=== PATIENT | female | born 1990 | race Caucasian/White ===

== ENCOUNTER 2024-08-14 16:06 | Emergency (ER) | payer MEDICAID, SELFPAY ==
[2024-08-14 16:14] VITALS: BP 118/77; PULSE 66; RESP 16; TEMP 36.8; O2SAT 97; BMI 35.4
--- NOTE | 2024-08-14 16:17 | ED.GENADULT ---
HPI - General Adult General Chief complaint: Nausea/Vomiting/Diarrhea Stated complaint: <10wks Preg; Vomiting, Dehydration Time Seen by Provider: 08/14/24 16:16 History of Present Illness HPI narrative: 34-year-old last menstrual period July 08 positive home test last night began feeling mild headache tinnitus and vertigo that has gotten worse over the course of the evening and today. She finds that motion makes it worse. She has not having any fevers. She did not have significant related nausea or vomiting with her 1st 2 pregnancies. No diarrhea or abdominal pain. No head trauma no recent fevers or chills Related Data Previous Rx's Medication Instructions Recorded meclizine 25 mg tablet 25 mg PO QID #20 tabs 08/14/24 ondansetron 4 mg disintegrating 4 mg PO Q8H PRN nausea and 08/14/24 tablet vomiting #20 tabs Review of Systems Review of Systems Narrative: Pertinent positive and negative findings as per HPI Exam Initial Vital Signs Initial Vital Signs: Vital Signs Temperature 98.2 F 08/14/24 16:14 Pulse Rate 66 08/14/24 16:14 Respiratory Rate 16 08/14/24 16:14 Blood Pressure 118/77 08/14/24 16:14 Pulse Oximetry 97 08/14/24 16:14 Oxygen Delivery Method Room Air 08/14/24 16:14 General: Looks like she does not feel well, holding her head very still Able to give a complete and coherent history. Well-nourished well-developed HEENT: Moist mucous membranes, normal sclera with reactive pupils, positive nystagmus with her head turned to the left. Respiratory: Lungs are clear to auscultation, no wheezing no rales no rhonchi. Full and symmetrical air movement Cardiac: Regular rate and rhythm no murmurs no bruits Abdomen: Soft, nontender, good bowel tones, no flank pain Neurologic: Grossly neurologically intact with no obvious asymmetries or abnormalities Extremities: No trauma, no edema Psych: Cooperative, appropriate insight and affect Course Orders Ordered: ED Orders 08/14/24 16:26 UA Complete [Urinalysis and Microscopic] Stat 08/14/24 16:36 Beta HCG, Quant [HCG Quantitative /Beta subunit] Stat Complete Blood Count AUTO DIFF Stat Comprehensive Metabolic Panel Stat 08/14/24 16:54 US OB <= 14 weeks fetus Stat Discontinued Medications Sodium Chloride (Normal Saline 0.9%) 1,000 mls @ 1,000 mls/hr IV BOLUS ONE Stop: 08/14/24 17:25 Last Admin: 08/14/24 16:43 Dose: 1,000 mls/hr Documented By: MARTINA Sodium Chloride (Normal Saline 0.9%) 1,000 mls @ 1,000 mls/hr IV BOLUS ONE Stop: 08/14/24 17:26 Ondansetron HCl (Ondansetron 4 Mg/2 Ml Inj) 4 mg IV NOW ONE Stop: 08/14/24 16:27 Last Admin: 08/14/24 16:43 Dose: 4 mg Documented By: MARTINA Vital Signs Vital signs: Vital Signs - 8 hr 08/14/24 16:14 Temperature 98.2 F Pulse Rate 66 Respiratory Rate 16 Blood Pressure 118/77 Pulse Oximetry 97 Oxygen Delivery Method Room Air Medical Decision Making Lab Data 08/14/24 16:36 08/14/24 16:36 Labs: Lab Results 08/14/24 Range/Units 16:36 WBC 10.0 (4.5-11.0) X10^3/uL RBC 4.57 (4.0-5.2) X10^6/uL Hgb 12.8 (12.0-16.0) g/dL Hct 37.8 (36-46) % MCV 82.7 (80-100) fL MCH 28.0 (26-34) PG MCHC 33.8 (30-36) % RDW 14.2 (11.6-14.8) % Plt Count 274 (150-400) X10^3/uL Neut % (Auto) 78.3 H (50-75) % Lymph % (Auto) 14.7 L (25-40) % [place] % (Auto) 5.9 (3-14) % Eos % (Auto) 0.6 L (2-4) % Baso % (Auto) 0.5 (0-2) % Neut # (Auto) 7800 H (6906-2817) /uL Lymph # (Auto) 1500 (7747-5443) /uL [place] # (Auto) 600 (0-900) /uL Eos # (Auto) 100 (0-450) /uL Baso # (Auto) 100 (0-100) /uL Sodium 133 L (137-145) mmol/L Potassium 3.5 (3.4-5.1) mmol/L Chloride 106 (98-107) mmol/L Carbon Dioxide 22 (22-32) mmol/L BUN 8 (7-17) mg/dL Creatinine 0.64 (0.52-1.04) mg/dL Estimated GFR > 60 (>60) mL/min BUN/Creatinine Ratio 12.5 (6-22) Glucose 103 H (70-100) mg/dL Calcium 8.8 (8.4-10.2) mg/dL Total Bilirubin 0.6 (0.2-1.3) mg/dL AST 23 (14-36) IU/L ALT 18 (<35) IU/L Alkaline Phosphatase 60 (38-126) U/L Total Protein 7.5 (6.3-8.2) g/dL Albumin 3.7 (3.5-5.0) g/dL Globulin 3.8 (1.7-4.1) g/dL Albumin/Globulin Ratio 1.0 (1.0-2.8) HCG, Quant 95717 mIU/mL MDM Narrative Medical decision making narrative: CC: Acute vertigo, incidental Complicating co-morbidities: , unknown dates Data collected from: patient Differential considered: Benign positional vertigo, ear infection, related nausea Exam documented above, pertinent findings include: Patient has fairly clear symptoms of benign positional vertigo with nystagmus noticeable when head is turned to the left. Belly is soft remainder of exam is benign Lab Test results independently reviewed as above. Pertinent findings: CBC is unremarkable Metabolic panel is reassuring Quantitative hCG is 35,741 Imaging studies independently reviewed: US confirms 7wk IUP Treatments: fluids, zofran , PO meclizine eply maneuver. As the most significant nystagmus is noticed with leftward gaze, we did an Chuck maneuver to the left side. Slight improvement. Still nauseated to have dry heaves when she is set up with the end of the procedure Discussion: 34-year-old woman with a 9 positional vertigo and incidentally found healthy 7 week intrauterine with the appropriate hCG levels. I suspect that the significant nausea does due to be PB rather than early related complications. She will be given prescription for both Zofran and meclizine. Meclizine is a be category. Reassurance is given, questions are answered there was no indication for hospitalization or additional imaging and she is safe for discharge Discharge Plan Departure Patient Disposition: Home Clinical Impression: Early stage of BPV (benign positional vertigo) Qualifiers: Laterality: left Qualified Code(s): H81.12 - Benign paroxysmal vertigo, left ear Instructions: DI for Benign Paroxysmal Positional Vertigo Activity Restrictions/Additional Instructions: Congratulations on your ! You are currently at 7 weeks, hCG levels are quite healthy and the fetus is appropriately growing in your uterus. This gives you a due date of Thursday April 03, 2025 The reason for you are acute vertigo is benign positional vertigo. It may be that your is complicating this but typically most people do not begin to notice too much nausea until beyond 7 weeks. I encourage you to do a [employer] search on benign positional vertigo and a [employer] search on treatments and Chuck maneuver to treat benign positional vertigo. Your current vertigo has the majority of symptoms to the left side You can use meclizine to help with nausea and vertigo this is safe and early . Zofran can also be used to help with the nausea Please do begin taking vitamins, contact your OB provider for a 1st visit If you find that you are getting worse or develop any new symptoms, please feel free to return to the emergency department for further evaluation. Prescriptions: New meclizine 25 mg tablet 25 mg PO QID Qty: 20 0RF ondansetron 4 mg tablet,disintegrating 4 mg PO Q8H PRN (Reason: nausea and vomiting) Qty: 20 0RF Stand Alone Forms: Patient Portal/API/Survey
[2024-08-14] MEDS: SODIUM CHLORIDE 0.9% 1,000 ML 1000 ML IV (16:43)
[2024-08-14] MEDS: ONDANSETRON 4 MG/2 ML INJ IV (16:43)
[2024-08-14 16:44] LABS: Add Manual Diff / Slide Review NO; Basophils Absolute Auto 100 /uL (0-100); Basophils Percent Auto 0.5 % (0-2); Eosinophils Absolute Auto 100 /uL (0-450); Eosinophils Percent Auto 0.6 % (2-4); Hematocrit 37.8 % (36-46); Hemoglobin 12.8 g/dL (12.0-16.0); Lymphocytes Absolute Auto 1500 /uL (1100-4500); Lymphocytes Percent Auto 14.7 % (25-40); Mean Corpuscular HGB Conc 33.8 % (30-36); Mean Corpuscular Volume 82.7 fL (80-100); Monocytes Absolute Auto 600 /uL (0-900); Monocytes Percent Auto 5.9 % (3-14); Neutrophils Absolute Auto 7800 /uL (1500-7000); Neutrophils Percent Auto 78.3 % (50-75); Platelet Count 274 X10^3/uL (150-400); Red Blood Cell Count 4.57 X10^6/uL (4.0-5.2); Red Cell Distribution Width 14.2 % (11.6-14.8)
[2024-08-14 16:54] LABS: Alanine Aminotransferase 18 IU/L (<35); Albumin 3.7 g/dL (3.5-5.0); Alkaline Phosphatase 60 U/L (38-126); Aspartate Aminotransferase 23 IU/L (14-36); BUN Creatinine Ratio 12.5 (6-22); Bilirubin Total 0.6 mg/dL (0.2-1.3); Blood Urea Nitrogen 8 mg/dL (7-17); Calcium 8.8 mg/dL (8.4-10.2); Carbon Dioxide 22 mmol/L (22-32); Chloride 106 mmol/L (98-107); Estimated Glomerular Filt Rate > 60 mL/min (>60); Globulin 3.8 g/dL (1.7-4.1); Glucose 103 mg/dL (70-100); HEMOLYSIS < 15 (0-50); Potassium 3.5 mmol/L (3.4-5.1); Sodium 133 mmol/L (137-145); Total Protein 7.5 g/dL (6.3-8.2)
--- NOTE | 2024-08-14 16:54 | DI.US.S_ITS ---
PROCEDURE: US OB <= 14 WEEKS FETUS INDICATIONS: confirm intrauterine OUTSIDE/PRIOR DATING DATA: Last menstrual period (LMP): 07/08/2024. LMP-based estimated date of delivery (ANGY): 04/14/2025. First dating scan (date and location): 08/14/2024. Estimated date of delivery (ANGY) from first dating scan: 04/02/2025. TECHNIQUE: Real-time scanning was performed of the fetus and maternal pelvic organs, with image documentation. Endovaginal scanning was also performed to better visualize the fetus and maternal ovaries. COMPARISON: None. FINDINGS: Embryo: crown-rump length measures 0.97 cm consistent with a 7 week 0 day gestation. Heart rate: 150 beats per minute Maternal organs: Right oophorectomy. Left corpus luteum cyst 1.8 cm IMPRESSION: Single live intrauterine consistent with a 7 week 0 day gestation Approved by: Lenny Lucero M.D. on 08/14/2024 at 18:19
[2024-08-14 17:35] LABS: HCG Quantitative /Beta subunit 35741 mIU/mL
[2024-08-14] MEDS: MECLIZINE HCL 12.5 MG TABLET 25 MG PO (17:45)
[2024-08-14 18:01] VITALS: BP 111/70; PULSE 62; O2SAT 100
[2024-08-14 18:05] VITALS: BP 110/70; PULSE 66; O2SAT 100
== END 2024-08-14 18:01 | disposition home or self-care (01) ==
PROVIDERS: Emergency Provider Emergency Medicine
DX: O26.91 Pregnancy related conditions, unspecified, first trimester (principal); H81.12 Benign paroxysmal vertigo, left ear; Z3A.09 9 weeks gestation of pregnancy
CPT/HCPCS: 36415; 76801; 76817; 80053; 84702; 85025; 96361; 96374; 99284; J2405